=== PATIENT | male | born 1990 | race African-American/Black ===

== ENCOUNTER 2017-10-03 04:59 | Day surgery (SDC) | payer OTHER ==
[2017-09-25 10:50] VITALS: BMI 27.9
[2017-10-03 11:08] VITALS: TEMP 98
[2017-10-03 16:32] VITALS: BP 136/64; PULSE 52
== END 2017-10-03 14:30 | disposition home or self-care (01) ==
LOC: JASU-SURG 04:59
PROVIDERS: ATTEND Orthopaedic Surgery
PROC: 0MRN47Z Replacement of Right Knee Bursa and Ligament with Autologous Tissue Substitute, Percutaneous Endoscopic Approach (ICD-10-PCS; principal; 2017-10-03)
DX: S83.511A Sprain of anterior cruciate ligament of right knee, initial encounter (principal); X58.XXXA Exposure to other specified factors, initial encounter; Y93.9 Activity, unspecified; Y92.9 Unspecified place or not applicable; Y99.9 Unspecified external cause status
CPT/HCPCS: 88304-TC; 94760